=== PATIENT | female | born 1935 | race Caucasian/White ===

== ENCOUNTER → 2016-07-29 17:21 | Outpatient (CLI) | payer MEDICARE, BC ==
[2014-01-13 08:58] VITALS: BMI 17.1
[~2016-07-29 17:21] MED LIST: ACETAMINOPHEN325 MG NG; BAYER CHEWABLE81 MG PO; BETAPACE 80 MG80 MG PO; CALTRATE 600 M600 M1 PO; COUMADIN5 MG PO; CRESTOR10 MG PO; HYDROCODON-ACE1 EAC7 PO; KLOR-CON20 MEQ/PKT PO; LEVOXYL25 MCG PO; PRILOSEC20 MG PO
== END | disposition home or self-care (01) ==
LOC: D.MAMMO 11:45
DX: Z12.31 Encounter for screening mammogram for malignant neoplasm of breast (principal)

== ENCOUNTER → 2016-11-24 12:26 | Outpatient (CLI) | payer MEDICARE, BC ==
[2014-01-13 08:58] VITALS: BMI 17.1
== END | disposition home or self-care (01) ==
LOC: D.RAD 12:26
DX: M54.5 Low back pain (principal)

== ENCOUNTER 2016-12-29 11:10 | Outpatient (CLI) | payer MEDICARE, BC ==
[~2016-12-29] VITALS: Ht 162.6 cm; Wt 49.1 kg
--- NOTE | ~2016-12-29 | OP ---
PATIENT NAME: JASSI WINSTON MEDICAL RECORD: [id number] :31 LOCATION:D.CAT ADMISSION DATE: SURGEON: CARMENCITA DALLAS M.D. DATE OF OPERATION: 12/29/2016 REFERRING PHYSICIAN: Dr. Rustam Garza. PROCEDURES PERFORMED: 1. Selective coronary angiography. 2. Left heart catheterization with ventriculogram. INDICATION: An 81-year-old woman, who presents with symptoms of accelerating angina. EQUIPMENT USED: A 5-Danish JL4, Serjio right, pigtail catheter. TECHNIQUE: A 5-Danish sheath was inserted in retrograde fashion in the right common femoral artery. Next, selective coronary angiography was performed in standard views 5-Danish JL4 and Serjio right. Left heart catheterization performed using pigtail catheter. CORONARY ANATOMY: 1. Left main: Left main trunk is moderate in caliber. It gives rise to the LAD and circumflex. It is angiographically normal. 2. LAD: This is a large caliber vessel extending to the apex somewhat tortuous consistent with hypertensive changes. However, the vessel is smooth-walled and angiographically normal. 3. Circumflex: This vessel is moderate in caliber. It provides the lateral branch in the proximal segment. The circumflex and lateral branch are angiographically normal. 4. Right coronary: This vessel is moderate in caliber and dominant. It actually arises from the noncoronary cusp. This vessel is smooth-walled and angiographically normal. 5. Left ventricle: Left ventricle demonstrates left ventricular hypertrophy. No regional wall motion abnormalities are seen. Estimated ejection fraction is 60%. IMPRESSION: 1. Normal coronary arteries. 2. Normal left ventricular function. RECOMMENDATIONS: I suspect her chest pain is noncardiac in origin. We will proceed with a workup in this area. TRANSINT:[id number] Voice Confirmation ID: [id number] DOCUMENT ID: [id number] CARMENCITA DALLAS M.D. CC: [id number] DICTATION DATE: 12/29/16 1422 TECHNICAL SERVICE REP: [id number] [facility] CLI 12/29/16 [place] [id number] [place] [id number]
--- NOTE | ~2016-12-29 | HEMODYNAMI ---
PATIENT:JASSI WINSTON MEDICAL RECORD: [id number] : 31 LOCATION:D.CAT ADMISSION DATE: 12/29/16 Generatedon:12/29/201614:21 Patient name: JASSI WINSTON Patient #: [id number] SSN: : Date of study: 12/29/2016 Page: Of Hemodynamic Procedure Report Patient Data Patient Demographics Procedure consent was obtained First Name: JASSI Gender: Female Last Name: TISH : 1935 Middle Initial: A Age: 81 year(s) Patient #: [id number] Race: Additional ID: [id number] Contact details Address: [address] [place] [address] State: [place] City: [place] Zip code: [address] Past Medical History Allergies Allergen Reaction Date Comments Reported Morphine 12/29/2016 Sulfa drugs 12/29/2016 Admission Admission Data Admission Date: 12/29/2016 Admission Time: 11:10 Admit Source: Other Insurance Payor: Medicare Height (in.): 64 BSA: 1.51 (m2) Height (cm.): 162.56 BMI: 18.54 (kg/m2) Weight (lbs.): 108 Weight (kg.): 48.99 Lab Results Lab Result Date: 12/29/2016 Lab Result Time: 0:00 Biochemistry Name Units Result Min Max BUN mg/dl 14 --(--*-)-- 7 18 Creatinine mg/dl 0.8 --(-*--)-- 0.6 1.3 CBC Name Units Result Min Max Hemoglobin g/dl 13.2 -*(----)-- 13.5 17.5 Procedure Procedure Types Cath Procedure Diagnostic Procedure [facility] w/Coronaries Procedure Description Procedure Date Procedure Date: 12/29/2016 Procedure Start Time: 14:05 Procedure End Time: 14:20 Procedure Staff Name Function Kevin Torres MD Performing Physician Danay Hoang RT Scrub Leatha Ferreira RN Nurse Luis Nash RT Monitor Procedure Data Cath Procedure Fluoroscopy Diagnostic fluoroscopy Total fluoroscopy Time: 1.9 time: 1.9 min min Diagnostic fluoroscopy Total fluoroscopy dose: 104 dose: 104 mGy mGy Contrast Material Contrast Material Type Amount (ml) Isovue 300 66 Entry Location Entry Primary Successful Side Size Upsize Upsize Entry Closure Succes sful Closure Location (Fr) 1 (Fr) 2 (Fr) Remarks Device Remarks Femoral Right 5 Fr Exoseal artery Estimated blood loss: 10 ml Diagnostic catheters Device Type Used For End Catheter Placement Cordis 5Fr JL 4.0 Procedure Catheter (MP) Cordis 5Fr 3DRC Catheter Procedure (MP) Cordis 5Fr Pigtail Procedure Catheter (MP) Procedure Medications Medication Administration Route Dosage Oxygen NC 2 l/min Heparin Flush Bag added to field 2 bags (1000units/500ml NS) Lidocaine 2% added to field 20 Radial Cocktail added to field 1 syringe (Verapomil 2mg/Nitro 400mcg/Heparin 1500units) Versed I.V. 1 mg Fentanyl I.V. 50 mcg Fentanyl I.V. 25 mcg Hemodynamics Rest BSA: 1.51 (m2) O2 Consumption: Estimated: 131.25 (ml/min) O2 Consumption indexed : Estimated:86.92 (ml/min/m) Heart Rate: 64 (bpm) Pressure Samples Time Site Value (mmHg) Purpose Heart Use Rate(bpm) 14:12 LV 143/5,11 Snapshot 64 14:13 AO 154/77(88) Pullback 66 14:13 LV 154/-1,11 Pullback 66 Gradients Valve Time Site 1 Site 2 Mean SEP/DFP Peak To Heart Use (mmHg) (sec/min) Peak Rate (mmHg) (bpm) Aortic 14:13 LV AO 5 14 0 66 154/-1,11 154/77(88) Calculations Valve P-P Mean Valve Index Valve Source Name Gradient Area Flow (cm2) Aortic 0 5 0 5 Snapshots Pre Cath Intra NCS Post Cath Vital Signs Time Heart Resp SPO2 etCO2 AU6poly NIBP (mmHg) Rhythm Pain Sedation Rate (ipm) (%) (mmHg) (mmHg) Status Level (bpm) 13:49:05 68 12 97 0 0 177/91(123) NSR 0 (11) 10(A) , No pain 13:53:27 61 15 100 0 0 175/77(99) NSR 0 (11) 10(A) , No pain 13:57:51 60 19 100 0 0 146/69(120) NSR 0 (11) 10(A) , No pain 14:02:03 60 19 98 0 0 141/70(114) NSR 0 (11) 10(A) , No pain 14:06:13 60 15 96 0 0 144/73(121) NSR 0 (11) 9(A) , No pain 14:10:25 60 16 96 0 0 152/69(113) NSR 0 (11) 9(A) , No pain 14:14:41 59 15 95 0 0 133/68(107) NSR 0 (11) 9(A) , No pain 14:18:28 60 18 98 0 0 150/75(120) NSR 0 (11) 9(A) , No pain Medications Time Medication Route Dose Verified Delivered Reason Notes Eff ectiveness by by 13:46:08 Oxygen NC 2 l/min Kevin Leatha Per Brian Ferreira RN physician 13:46:19 Heparin Flush added 2 bags Kevin Kevin used for Bag to Brian Torres MD procedure (1000units/500ml field NS) 13:46:26 Lidocaine 2% added 20ml Kevin Kevin used for to vial Brian Torres MD procedure field 13:46:34 Radial Cocktail added 1 Kevin Kevin used for (Verapomil to syringe Brian Torres MD procedure 2mg/Nitro field 400mcg/Heparin 1500units) 14:00:45 Versed I.V. 1 mg Kevin Leatha for Brian Ferreira RN sedation 14:00:52 Fentanyl I.V. 50 mcg Kevin Leatha for Brian Ferreira RN sedation 14:05:28 Fentanyl I.V. 25 mcg Kevin Leatha for Brian Ferreira RN sedation Procedure Log Time Note 13:28:40 Luis PEARSON(R) (CV) sent for patient. Start room use. 13:28:41 Time tracking: Regular hours 13:28:45 Plan of Care:Hemodynamics will remain stable., Cardiac rhythm will remain stable., Comfort level will be maintained., Respiratory function will remain adequate., Patient/ family verbilizes understanding of procedure., Procedure tolerated without complication., Recovers from procedure without complications.. 13:38:34 Patient received from Pre/Post Procedure Room to CCL 1 Alert and oriented. Tansferred to table in Supine position. 13:38:35 Warm blankets applied, and hebert hugger turned on for patient comfort. 13:38:36 Correct patient and procedure confirmed by team. 13:38:37 Signed procedure consent form obtained from patient. 13:38:38 ECG and BP/O2 sat monitors applied to patient. 13:38:41 Full Disclosure recording started 13:46:08 Oxygen 2 l/min NC was administered by Leatha Ferreira RN; Per physician; 13:46:19 Heparin Flush Bag (1000units/500ml NS) 2 bags added to field was administered by Kevin Torres MD; used for procedure; 13:46:26 Lidocaine 2% 20ml vial added to field was administered by Kevin Torres MD; used for procedure; 13:46:34 Radial Cocktail (Verapomil 2mg/Nitro 400mcg/Heparin 1500units) 1 syringe added to field was administered by Kevin Torres MD; used for procedure; 13:47:59 Vital chart was started 13:52:14 Rhythm: sinus rhythm 13:52:35 H&P Date Dictated: 12/18/2016 Within 30 days and on chart., H&P Addendum completed by physician on day of procedure. (MUST COMPLETE FOR ALL OUTPATIENTS). 13:52:43 Pre-procedure instructions explained to patient. 13:52:44 Pre-op teaching completed and patient verbalized understanding. 13:52:48 Family in patients room. 13:52:52 Patient NPO since Breakfast. 13:53:08 Patient allergic to Morphine 13:53:16 Patient allergic to Sulfa drugs 13:53:29 Is the patient allergic to Iodine/contrast media? No. 13:53:34 Is patient on blood thinner?No 13:53:38 Patient diabetic? No. 13:53:44 Patient not . Patient is over age 55. 13:53:46 ----Pre-sedation anethsthesia assessment.---- 13:54:37 Snore? Yes 13:54:39 Sleep apnea? No 13:54:40 Deviated septum? No 13:54:42 Opens mouth fully? Yes 13:54:43 Sticks out tongue? Yes 13:54:46 Airway obstruction? No ? 13:54:56 Dentures? Yes BRIDGE 13:55:03 Pre procedure: right dorsailis pedis pulse 1+ Palpable, but thready & weak; easily obliterated 13:55:09 Modified Edis's test Ulnar < 7 seconds 13:55:21 Patient pain scale 0/10 NO PAIN. 13:55:50 IV patent on arrival in left wrist with 0.9% NaCl at O. 13:58:13 Lab Result : BUN 14 mg/dl 13:58:13 Lab Result : Hemoglobin 13.2 g/dl 13:58:13 Lab Result : Creatinine 0.8 mg/dl 13:58:17 Lab results completed and on chart. 13:58:22 Right Radial & Right Groin area was prepped with chlora-prep and draped in sterile fashion 13:58:25 Alarms reviewed by R. N. 13:58:26 Sharps counted by scrub and verified by R.N. 13:58:39 Admit Source: Other 13:58:46 Patient Height : 64 cm 13:58:57 Patient Weight : 108 kg 13:58:57 Insurance Payor : Medicare 13:59:23 Physician arrived 13:59:24 --------ALL STOP TIME OUT------ 13:59:25 Final Timeout: patient, procedure, and site verified with staff and physician. All members of the team are in agreement. 13:59:30 Right Radial & Right Groin site verified by team. 13:59:39 Physical assessment completed. ASA score P 2 - A patient with mild systemic disease as per Kevin Torres MD. 14:00:45 Versed 1 mg I.V. was administered by Leatha Ferreira RN; for sedation; 14:00:52 Fentanyl 50 mcg I.V. was administered by Leatha Ferreira RN; for sedation; 14:01:47 Zero performed for pressure channel P1 14:03:38 Use device set Radial Dx 14:03:39 Acist Syringe opened to sterile field. 14:03:40 Medline Cath Pack opened to sterile field. 14:03:40 Bag Decanter opened to sterile field. 14:03:42 St Suraj 260cm J .035 wire opened to sterile field. 14:03:44 Acist Hand Control opened to sterile field. 14:03:47 Acist Manifold opened to sterile field. 14:03:50 Tegaderm 4 x 4 opened to sterile field. 14:03:51 MBrace Wrist Support opened to sterile field. 14:03:57 Procedure started. 14:04:53 DUE TO PATIENTS SIZR DR. TORRES DECIDED TO GO FEMORAL 14:05:11 Use device set Femoral Dx 14:05:15 Terumo 5Fr [place] Sheath opened to sterile field. 14:05:20 Diagnostic Infinity 5Fr Multipack catheter opened to sterile field. 14:05:28 Fentanyl 25 mcg I.V. was administered by Leatha Ferreira RN; for sedation; 14:05:48 Local anesthetic to right femoral artery with Lidocaine 2% by Kevin Torres MD.INITIAL ACCESS ONLY 14:06:48 A 5 Fr sheath was inserted into the Right Femoral artery 14:07:27 A Cordis 5Fr JL 4.0 Catheter (MP) was advanced over the wire and used for Procedure. 14:07:57 LCA angiography performed. 14:09:59 Catheter removed. 14:10:18 A Cordis 5Fr 3DRC Catheter (MP) was advanced over the wire and used for Procedure. 14:10:56 RCA angiography performed. 14:11:33 Catheter removed. 14:12:22 A Cordis 5Fr Pigtail Catheter (MP) was advanced over the wire and used for Procedure. 14:12:59 LV gram done using MEDEIROS 14:13:05 EF : 55 % 14:13:40 Catheter removed. 14:14:48 Cordis 5Fr Exoseal opened to sterile field. 14:15:57 Sheath removed intact; hemostasis achieved with Exoseal to the Right Femoral artery. 14:16:00 Procedure ended.(Physican Out) 14:16:16 Fluoroscopy time 01.90 minutes. 14:16:21 Fluoroscopy dose: 104 mGy 14:16:21 Flurop Dose total: 104 14:16:27 Contrast amount:Isovue 300 66ml. 14:16:29 Sharps counted by scrub and verified by R.N. 14:18:47 Insertion/operative site no bleeding no hematoma. 14:18:51 Post-op/insertion site Right Femoral artery dressed using a 4 x 4 and Tegaderm. 14:18:56 Post right femoral artery:stable 14:18:58 Post Procedure Pulses reassessed and unchanged 14:19:04 Post-procedure physical assessment completed. ASA score P 2 - A patient with mild systemic disease as per Kevin Torres MD. 14:19:09 Post procedure rhythm: sinus rhythm 14:19:13 Estimated blood loss: 10 ml 14:19:14 Post procedure instruction explained to patient.Patient verbalizes understanding. 14:19:49 Patient needs reinforcement of post procedure teaching. 14:19:50 Procedure and supply charges have been captured, reviewed, submitted and are correct. 14:19:53 Vital chart was stopped 14:19:54 See physician's report for complete and final results. 14:19:56 Report given to Pre/Post Procedure Room. 14:20:01 Patient transfered to Pre/Post Procedure Room with Stretcher. 14:20:04 Procedure ended. 14:20:04 Full Disclosure recording stopped 14:20:56 End room use (Document Last) Device Usage Item Name Manufacture Quantity Catalog Hospital Part Current Minimal Lot# / Number Charge Number Stock Stock Serial# Code Acist Acist 1 [id number] [id number] 709661 876654 20 Syringe Medical [employer] Inc Medline Cardinal 1 [id number] [id number] 23777 698806 5 Cath Pack Health Bag Microtek 1 2002S 995039 71956 798368 [address] Suraj 1 [id number] 598416 790265 540201 30 260cm J .035 wire Acist Hand Acist 1 40316 081110 592604 360284 5 Control Medical Systems Inc Acist Acist 1 52874 292918 343664 085269 5 Manifold Medical Systems Inc Tegaderm 4 3M 1 1626W 332888 952748 008772 5 x 4 MBrace Advanced 1 140-0250-00 762688 25096 732781 5 Wrist Vascular Support Dynamics Terumo 5Fr Terumo 1 [id number] 505835 372720 501581 40 [place] Sheath Diagnostic Cardinal 1 [id number] 153394 17634 829393 30 Infinity Health 5Fr Multipack catheter Cordis 5Fr Cardinal 1 314506 5 JL 4.0 Health Catheter (MP) Cordis 5Fr Cardinal 1 933570 5 3DRC Health Catheter (MP) Cordis 5Fr Cardinal 1 100765 5 Pigtail Health Catheter (MP) Cordis 5Fr Cardinal 1 EX500 419296 469256 543153 10 [place] Signature Audit Nursery Stage Time Signature Unsigned Intra-Procedure 12/29/2016 Luis Nash 2:21:54 PM RT(R) (CV) Signatures Monitor : Luis Nash RT Signature : Date : Time : [address] [place] [address]
[2016-12-29 11:51] VITALS: BP 170/78; Ht 162.6 cm; Wt 49.1 kg
[2016-12-29 12:16] LABS: BASOPHILS 0.6 % (0-2); EOSINOPHILS 3.1 % (0-7); HEMATOCRIT 39.4 % (36.0-48.0); HEMOGLOBIN 13.2 g/dL (12-16); IMMATURE GRANULOCYTES 0.3 % (0-5); LYMPHOCYTES 24.6 % (15-50); MCH 30.8 pg (26.0-34.0); MCHC 33.5 g/dL (31.0-37.0); MCV 92.1 fL (80.0-100.0); MEAN PLATELET VOLUME 8.6 fL (7.4-10.4); MONOCYTES 11.4 % (2-11); PLATELET COUNT 165 10x3/uL (130-400); RBC 4.28 10x6/uL (4.00-5.40); RDW 14.6 % (11.5-14.5); WBC 6.5 10x3/uL (4.8-10.8)
[2016-12-29 12:33] LABS: ANION GAP 9.7 mmol/L (8-16); CALCIUM 9.7 mg/dL (8.5-10.1); CARBON DIOXIDE 30.4 mmol/L (21.0-32.0); CREATININE - SERUM 0.8 mg/dL (0.6-1.3); POTASSIUM - SERUM 4.1 mmol/L (3.5-5.1)
--- NOTE | 2016-12-29 14:45 | NUR ---
RESTING, RIGHT GROIN CDI, NO HEMATOMA OR BLEEDING AT SITE, SOFT TO TOUCH.
--- NOTE | 2016-12-29 15:15 | NUR ---
RIGHT GROIN CDI, NO HEMATOMA OR BLEEDING AT SITE, SOFT TO TOUCH
== END 2016-12-29 17:00 | disposition home or self-care (01) ==
LOC: D.CATH 11:10
PROVIDERS: Internal Medicine Cardiovascular Disease
DX: R07.89 Other chest pain (principal)

== ENCOUNTER 2017-07-31 11:17 | Emergency (ER) | payer MEDICARE, BC ==
[2016-12-29 11:51] VITALS: BMI 18.5
[2017-07-31 12:28] LABS: ALBUMIN 3.8 g/dL (3.4-5.0); ALKALINE PHOSPHATASE 76 U/L (46-116); ALT (SGPT) 21 U/L (10-68); BILIRUBIN - TOTAL 0.61 mg/dL (0.2-1.3); CALC OSMOLALITY 280 mosm/kg (275-300); CALCIUM 9.2 mg/dL (8.5-10.1); CARBON DIOXIDE 29.8 mmol/L (21.0-32.0); CHLORIDE - SERUM 101 mmol/L (98-107); CREATININE - SERUM 0.7 mg/dL (0.6-1.3); GLUCOSE 92 mg/dL (74-106); MAGNESIUM - SERUM 2.4 mg/dL (1.8-2.4); SODIUM 140 mmol/L (136-145); THYROID STIMULATING HORMONE 2.08 uIU/mL (0.36-3.74); UREA NITROGEN 19 mg/dL (7-18); eGFR NON AFRICAN AMERICAN 84 mL/min (90-120)
[2017-07-31 12:30] LABS: POTASSIUM - SERUM 4.4 mmol/L (3.5-5.1)
[2017-07-31 12:48] LABS: BASOPHILS 0.4 % (0-2); HEMATOCRIT 44.3 % (36.0-48.0); HEMOGLOBIN 14.9 g/dL (12-16); IMMATURE GRANULOCYTES 0.1 % (0-5); LYMPHOCYTES 13.2 % (15-50); MCH 30.2 pg (26.0-34.0); MCHC 33.6 g/dL (31.0-37.0); MCV 89.9 fL (80.0-100.0); MEAN PLATELET VOLUME 9.8 fL (7.4-10.4); MONOCYTES 5.5 % (2-11); NEUTROPHILS 79.8 % (40-80); PLATELET COUNT 148 10x3/uL (130-400); RBC 4.93 10x6/uL (4.00-5.40); WBC 8.2 10x3/uL (4.8-10.8)
== END 2017-07-31 13:11 | disposition home or self-care (01) ==
LOC: D.ER 11:17
PROVIDERS: Emergency Medicine
DX: R55 Syncope and collapse (principal); S09.90XA Unspecified injury of head, initial encounter; W19.XXXA Unspecified fall, initial encounter; Y93.9 Activity, unspecified; Y92.9 Unspecified place or not applicable; M54.5 Low back pain; Z95.0 Presence of cardiac pacemaker; I48.91 Unspecified atrial fibrillation; I49.3 Ventricular premature depolarization

== ENCOUNTER 2017-09-20 10:54 | Inpatient (IN) | payer MEDICARE, BC ==
[~2017-09-20] VITALS: Ht 162.6 cm; Wt 41.3 kg
[~2017-09-20 10:54] MED LIST changes: -CRESTOR10 MG PO
[2017-09-20 11:16] LABS: BASOPHILS 0.3 % (0-2); EOSINOPHILS 0.5 % (0-7); HEMATOCRIT 42.7 % (36.0-48.0); HEMOGLOBIN 14.4 g/dL (12-16); IMMATURE GRANULOCYTES 0.1 % (0-5); LYMPHOCYTES 9.5 % (15-50); MCH 29.7 pg (26.0-34.0); MCHC 33.7 g/dL (31.0-37.0); MEAN PLATELET VOLUME 9.3 fL (7.4-10.4); MONOCYTES 5.7 % (2-11); NEUTROPHILS 83.9 % (40-80); PLATELET COUNT 132 10x3/uL (130-400); RBC 4.85 10x6/uL (4.00-5.40); RDW 13.5 % (11.5-14.5); WBC 7.8 10x3/uL (4.8-10.8)
[2017-09-20 11:40] LABS: ALBUMIN 3.8 g/dL (3.4-5.0); ALKALINE PHOSPHATASE 82 U/L (46-116); ALT (SGPT) 24 U/L (10-68); BILIRUBIN - TOTAL 1.02 mg/dL (0.2-1.3); CALC OSMOLALITY 278 mosm/kg (275-300); CALCIUM 8.8 mg/dL (8.5-10.1); CARBON DIOXIDE 25.9 mmol/L (21.0-32.0); CHLORIDE - SERUM 103 mmol/L (98-107); CREATININE - SERUM 0.6 mg/dL (0.6-1.3); GLUCOSE 105 mg/dL (74-106); POTASSIUM - SERUM 3.1 mmol/L (3.5-5.1); PROTEIN - SERUM 6.9 g/dL (6.4-8.2); SODIUM 139 mmol/L (136-145); UREA NITROGEN 15 mg/dL (7-18); eGFR NON AFRICAN AMERICAN > 90 mL/min (90-120)
[2017-09-20 11:44] LABS: APPEARANCE CLEAR (CLEAR); BILIRUBIN NEGATIVE (NEGATIVE); COLOR YELLOW (YELLOW); GLUCOSE NEGATIVE (NEGATIVE); KETONE SMALL mg/dL (NEGATIVE); NITRITE NEGATIVE (NEGATIVE); PROTEIN 1+ mg/dL (NEGATIVE); UROBILINOGEN NORMAL (NORMAL)
[2017-09-20 11:45] LABS: BACTERIA MODERATE /hpf (NONE SEEN); EPITHELIAL CELLS 0-5 /hpf (0-5); RED CELLS - URINE 0-5 /hpf (0-5); WHITE CELLS - URINE 0-5 /hpf (0-5)
[2017-09-20 12:05] LABS: CREATINE KINASE 109 UL (21-215); PRO BNP 4170 pg/mL (0-450)
[2017-09-20 16:59] VITALS: BP 156/90
[2017-09-20 18:00] VITALS: BP 156/90; BMI 24.0
[2017-09-20] MEDS ORDERED: CRESTOR10 MG PO (18:06)
[2017-09-20 22:24] LABS: ANION GAP 10.1 mmol/L (8-16); CALCIUM 8.2 mg/dL (8.5-10.1); CREATININE - SERUM 0.9 mg/dL (0.6-1.3); POTASSIUM - SERUM 3.1 mmol/L (3.5-5.1)
[2017-09-20 22:30] VITALS: BP 126/60
[2017-09-21 00:30] VITALS: BP 131/88
[2017-09-21 04:30] VITALS: BP 141/78
[2017-09-21 05:21] LABS: BASOPHILS 0.4 % (0-2); EOSINOPHILS 0.9 % (0-7); HEMATOCRIT 39.6 % (36.0-48.0); HEMOGLOBIN 12.8 g/dL (12-16); IMMATURE GRANULOCYTES 0.1 % (0-5); LYMPHOCYTES 16.6 % (15-50); MCHC 32.3 g/dL (31.0-37.0); MCV 89.8 fL (80.0-100.0); MEAN PLATELET VOLUME 9.4 fL (7.4-10.4); MONOCYTES 10.8 % (2-11); NEUTROPHILS 71.2 % (40-80); RBC 4.41 10x6/uL (4.00-5.40); RDW 13.8 % (11.5-14.5)
[2017-09-21 05:27] LABS: PLATELET COUNT 164 10x3/uL (130-400)
[2017-09-21 06:07] LABS: ALBUMIN 3.5 g/dL (3.4-5.0); BILIRUBIN - TOTAL 0.8 mg/dL (0.2-1.3); CALCIUM 8.3 mg/dL (8.5-10.1); CARBON DIOXIDE 29.2 mmol/L (21.0-32.0); CREATININE - SERUM 0.8 mg/dL (0.6-1.3); PROTEIN - SERUM 6.7 g/dL (6.4-8.2); THYROID STIMULATING HORMONE 1.08 uIU/mL (0.36-3.74)
[2017-09-21 06:14] LABS: ANION GAP 14.7 mmol/L (8-16)
[2017-09-21 06:15] LABS: POTASSIUM - SERUM 2.9 mmol/L (3.5-5.1)
[2017-09-21 09:29] VITALS: BP 128/79
[2017-09-21 12:23] VITALS: BP 137/76
[2017-09-21 12:44] VITALS: Ht 162.6 cm; Wt 41.3 kg
[2017-09-21 15:56] VITALS: BP 153/86
[2017-09-21 19:00] VITALS: BP 151/85
[2017-09-22] VITALS: BP 125/70
[2017-09-22 04:00] VITALS: BP 155/92
[2017-09-22 06:11] LABS: ANION GAP 11.7 mmol/L (8-16); CALCIUM 8.8 mg/dL (8.5-10.1); CREATININE - SERUM 0.9 mg/dL (0.6-1.3); POTASSIUM - SERUM 3.7 mmol/L (3.5-5.1)
[2017-09-22 08:06] VITALS: BP 137/93
[2017-09-22 13:03] VITALS: BP 109/67
[2017-09-22] MEDS ORDERED: ELIQUIS2.5 MG PO (15:39)
[2017-09-22] MEDS ORDERED: K-DUR20 MEQ PO (15:45)
[2017-09-22] MEDS ORDERED: LASIX40 MG PO (15:45)
[2017-09-22] MEDS ORDERED: DULCOLAX10 MG/SUPP RC (15:46)
[2017-09-22 16:40] VITALS: BP 134/76
== END 2017-09-22 18:04 | DRG 64 ==
LOC: D.ER 10:54 → D.M2 13:19
PROVIDERS: Emergency Medicine; Family Medicine
DX: I63.9 Cerebral infarction, unspecified (principal); I50.31 Acute diastolic (congestive) heart failure; G81.91 Hemiplegia, unspecified affecting right dominant side; I48.91 Unspecified atrial fibrillation; Z79.01 Long term (current) use of anticoagulants; I25.10 Atherosclerotic heart disease of native coronary artery without angina pectoris; Z95.0 Presence of cardiac pacemaker

== ENCOUNTER 2017-09-22 17:27 | Inpatient (IN) | payer MEDICARE, BC ==
[~2017-09-22] VITALS: Ht 162.6 cm; Wt 49.9 kg
--- NOTE | ~2017-09-22 | RHP ---
PATIENT: JASSI WINSTON MEDICAL RECORD: [id number] ACCOUNT: [id number] LOCATION:[facility]1110 : 31 ADMISSION DATE: 09/22/17 REHABILITATION HISTORY AND PHYSICAL EXAMINATION POST ADMISSION PHYSICIAN EXAMINATION DATE OF ADMISSION: 09/22/2017 ADMITTING DIAGNOSES: Acute CVA with right-sided weakness. HISTORY OF PRESENT ILLNESS: The patient is an 82-year-old female patient admitted secondary to acute CVA. She was admitted to the hospital from the ER on 09/20/17. She presented to the ER after her daughter found her sitting on the commode and was unable to get up. The patient remembers getting up to go to the bathroom, but unsure of the events that followed. She states that a couple of days prior to this she had been extremely weak. She had difficulty ambulating in her house, started having some shortness of breath as well. She is alert and oriented, but had obvious weakness in her right arm and leg along with some difficulty in drinking water. CT of her head showed no acute intracranial abnormality. Mild cerebral atrophy. Chest x-ray showed moderate cardiomegaly with increasing prominence since previous study. There was some mild central pulmonary edema. There is bilateral lower lobe airspace disease, greater on the left than right. There are small bilateral pleural effusions. Bedside swallow eval showed no overt signs of aspiration, but recommended safety and dietary tolerance due to profound weakness, previously she lived alone and was independent with her ADLs and mobility without assistive devices. She is currently moderate to max assist for ADLs and mobility. 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 She has generalized weakness and poor balance. She ambulated 2 feet with 60% assist from PT. She has good family support, is motivated to regain her strength, so she can hopefully return back home to her prior level of functioning. COMORBIDITIES: In this patient include new onset CHF, pulmonary edema, bilateral pleural effusions, AFib, atrial flutter, coronary artery disease, acute dyspnea, elevated BNP, inadequate protein intake, right-sided weakness, fatigue, recent fall, orthostatic syncope, IBS, gastroesophageal reflux disease and difficulty swallowing. PAST MEDICAL HISTORY: Significant for thyroid problems. She has history of arrhythmia and pacemaker placement, coronary artery disease. PAST SURGICAL HISTORY: Includes hysterectomy. She also had a pacemaker placement. ALLERGIES: SULFA, MORPHINE. CURRENT MEDICATIONS: Include Protonix 40 mg daily, Synthroid 25 mcg daily, sotalol 40 mg b.i.d., potassium 20 mEq b.i.d., [place] 5/325 one tab q.4 hours p.r.n., Lasix 40 mg b.i.d., Caltrate 500 mg b.i.d., Dulcolax 10 mg as needed for constipation, aspirin chew 81 mg daily, Eliquis 2.5 mg b.i.d., Tylenol 650 mg q.4 hours p.r.n., and MiraLax 17 grams in 8 ounces of water daily. HABITS: No alcohol or tobacco use. HISTORY AND PHYSICAL [id number] JASSI WINSTON FAMILY HISTORY: Noncontributory. SOCIAL HISTORY: The patient hopes to return back home with her family. REVIEW OF SYSTEMS: GENERAL: Does complain of weakness, right greater than left. HEENT: Denies cold, cough, or congestion. CARDIOVASCULAR: Denies chest pain. PHYSICAL EXAMINATION: VITAL SIGNS: Stable, afebrile. GENERAL: Elderly female in no acute distress, alert upon exam. HEENT: Normocephalic and atraumatic. Mucosa moist. NECK: Supple. No lymphadenopathy. LUNGS: Clear at this time. HEART: Regular rate and rhythm. ABDOMEN: Benign. EXTREMITIES: No clubbing, cyanosis or edema. NEUROLOGIC: She does have noted weakness on her right side and inability to control her right leg when instructed. LABORATORY DATA: Her white count is 7.4, H&H 13 and 41 and platelet count is 167. Sodium 141, potassium 3.2, BUN and creatinine of 33 and 1.1. Blood sugar was noted to be 98. ASSESSMENT: This is an 82-year-old female patient admitted to rehab with a working diagnosis of cerebrovascular accident with right-sided involvement. The patient has potential to make improvement. We instituted the following multidisciplinary therapies including to but not limited to physical, occupational, respiratory, speech, nutritional services, prosthetics and orthotics. Given her complex medical conditions and risk for further medical complications, rehabilitation services cannot be provided at a lower level of care such as a care home facility. PLAN: 1. Admit to [facility] rehab for intensive inpatient therapy to include the following disciplines: A. Physical therapy to improve gait, all transfer skills and bed mobility to a modified independent level. B. Occupational therapy to improve activities of daily living to modified independent level. C. Case management to assist with discharge planning and placement options. D. Nutrition to assist with nutritional needs. E. Rehabilitation nursing to assist in monitoring the patient's underlying medical conditions and to assist with any type of bowel or bladder management. 2. The patient's current medical care and medications will be continued. 3. The patient will be placed on standard fall precautions. 4. The patient's estimated length of stay is approximately 7-10 days. 5. Discuss this patient during care team staff meeting this week. TRANSINT:[id number] Voice Confirmation ID: [id number] DOCUMENT ID: [id number] FRANK notes whether there has been none or any medical/functional change since admission: HISTORY AND PHYSICAL [id number] JASSI WINSTON - No change since preadmission screen. FRANK attests patient continues to be appropriate for IRF: - Continues to be appropriate. JOSELYN FABIAN MD at 1139 CC: [id number] DICTATION DATE: 09/23/17 0848 CLINICAL SECRETARY: 09/23/17 0929 ADM IN [facility] [address] [place] [id number]
[~2017-09-22 17:27] MED LIST changes: +CRESTOR10 MG PO; +DULCOLAX10 MG/SUPP RC; +ELIQUIS2.5 MG PO; +K-DUR20 MEQ PO; +LASIX40 MG PO
[2017-09-22 18:54] VITALS: BP 131/55; BMI 18.9
[2017-09-22 23:42] VITALS: BP 120/60
[2017-09-23 07:31] LABS: BASOPHILS 0.5 % (0-2); EOSINOPHILS 2.8 % (0-7); HEMATOCRIT 41.1 % (36.0-48.0); HEMOGLOBIN 13.3 g/dL (12-16); IMMATURE GRANULOCYTES 0.1 % (0-5); LYMPHOCYTES 19.9 % (15-50); MCH 29.5 pg (26.0-34.0); MCHC 32.4 g/dL (31.0-37.0); MCV 91.1 fL (80.0-100.0); MEAN PLATELET VOLUME 9.6 fL (7.4-10.4); MONOCYTES 14.9 % (2-11); NEUTROPHILS 61.8 % (40-80); PLATELET COUNT 167 10x3/uL (130-400); RBC 4.51 10x6/uL (4.00-5.40); RDW 13.9 % (11.5-14.5); WBC 7.4 10x3/uL (4.8-10.8)
[2017-09-23 07:43] LABS: ANION GAP 10.6 mmol/L (8-16); CALCIUM 8.7 mg/dL (8.5-10.1); CARBON DIOXIDE 32.6 mmol/L (21.0-32.0); POTASSIUM - SERUM 3.2 mmol/L (3.5-5.1)
[2017-09-23 08:00] VITALS: BP 134/69
[2017-09-23 11:04] VITALS: Ht 162.6 cm; Wt 49.9 kg
[2017-09-24 00:24] VITALS: BP 128/57
[2017-09-24 08:11] VITALS: BP 135/66
[2017-09-24 20:15] VITALS: BP 127/55
[2017-09-25 06:12] LABS: EOSINOPHILS 6.9 % (0-7); HEMATOCRIT 38.7 % (36.0-48.0); HEMOGLOBIN 12.4 g/dL (12-16); IMMATURE GRANULOCYTES 0.3 % (0-5); MCH 29.2 pg (26.0-34.0); MCV 91.1 fL (80.0-100.0); MEAN PLATELET VOLUME 9.6 fL (7.4-10.4); MONOCYTES 13.8 % (2-11); PLATELET COUNT 166 10x3/uL (130-400); RBC 4.25 10x6/uL (4.00-5.40); RDW 13.8 % (11.5-14.5); WBC 5.8 10x3/uL (4.8-10.8)
[2017-09-25 06:30] LABS: ANION GAP 10.1 mmol/L (8-16); CALCIUM 8.9 mg/dL (8.5-10.1); CARBON DIOXIDE 31.4 mmol/L (21.0-32.0); CREATININE - SERUM 0.9 mg/dL (0.6-1.3); POTASSIUM - SERUM 3.5 mmol/L (3.5-5.1)
[2017-09-25 08:53] VITALS: BP 141/70
[2017-09-25 22:24] VITALS: BP 136/70
[2017-09-26 09:34] VITALS: BP 188/71
[2017-09-26 18:35] VITALS: BP 137/72
[2017-09-26 20:00] VITALS: BP 162/63
[2017-09-27 07:52] VITALS: BP 149/76
[2017-09-28 07:46] VITALS: BP 97/63
[2017-09-28 18:51] VITALS: BP 140/62
[2017-09-29 07:38] LABS: BASOPHILS 0.7 % (0-2); EOSINOPHILS 1.6 % (0-7); HEMATOCRIT 40.6 % (36.0-48.0); HEMOGLOBIN 13.1 g/dL (12-16); IMMATURE GRANULOCYTES 0.2 % (0-5); LYMPHOCYTES 31.6 % (15-50); MCH 29.2 pg (26.0-34.0); MCHC 32.3 g/dL (31.0-37.0); MCV 90.6 fL (80.0-100.0); MEAN PLATELET VOLUME 9.8 fL (7.4-10.4); NEUTROPHILS 50.9 % (40-80); RBC 4.48 10x6/uL (4.00-5.40); RDW 13.8 % (11.5-14.5); WBC 4.3 10x3/uL (4.8-10.8)
[2017-09-29 07:42] LABS: PLATELET COUNT 128 10x3/uL (130-400)
[2017-09-29 07:48] LABS: ANION GAP 13.7 mmol/L (8-16); CALCIUM 8.6 mg/dL (8.5-10.1); CREATININE - SERUM 0.9 mg/dL (0.6-1.3); POTASSIUM - SERUM 3.7 mmol/L (3.5-5.1)
[2017-09-29 08:09] VITALS: BP 136/61
[2017-09-29 20:17] VITALS: BP 144/60
[2017-09-30 07:46] VITALS: BP 127/67
[2017-09-30 20:06] VITALS: BP 109/48
[2017-10-01 08:02] VITALS: BP 124/63
[2017-10-01 19:41] VITALS: BP 142/60
[2017-10-02 08:00] VITALS: BP 125/70
[2017-10-02 19:50] VITALS: BP 127/64
[2017-10-03 08:30] VITALS: BP 99/50
[2017-10-03 20:15] VITALS: BP 102/65
[2017-10-04 07:40] VITALS: BP 101/50
[2017-10-04 20:15] VITALS: BP 114/56
[2017-10-05 06:08] LABS: BASOPHILS 0.7 % (0-2); EOSINOPHILS 4.3 % (0-7); HEMATOCRIT 44.4 % (36.0-48.0); HEMOGLOBIN 14.6 g/dL (12-16); LYMPHOCYTES 36.1 % (15-50); MCH 29.5 pg (26.0-34.0); MCHC 32.9 g/dL (31.0-37.0); MCV 89.7 fL (80.0-100.0); MEAN PLATELET VOLUME 9.6 fL (7.4-10.4); MONOCYTES 9.9 % (2-11); RBC 4.95 10x6/uL (4.00-5.40); RDW 13.5 % (11.5-14.5); WBC 4.5 10x3/uL (4.8-10.8)
[2017-10-05 06:15] LABS: PLATELET COUNT 180 10x3/uL (130-400)
[2017-10-05 06:32] LABS: ANION GAP 9.7 mmol/L (8-16); CALCIUM 9.1 mg/dL (8.5-10.1); CREATININE - SERUM 1.1 mg/dL (0.6-1.3); POTASSIUM - SERUM 3.7 mmol/L (3.5-5.1)
[2017-10-05 08:00] VITALS: BP 144/76
[2017-10-05 21:25] VITALS: BP 120/70
[2017-10-06 08:31] VITALS: BP 133/81
[2017-10-06 20:00] VITALS: BP 87/56
[2017-10-07 09:29] VITALS: BP 104/71
[2017-10-07 19:05] VITALS: BP 116/52
[2017-10-08 06:58] VITALS: BP 112/66
[2017-10-08 19:00] VITALS: BP 111/61
[2017-10-09] MEDS ORDERED: LASIX20 MG PO (08:07)
[2017-10-09 08:14] VITALS: BP 113/51
== END 2017-10-09 11:00 | disposition home health service (06) | DRG 57 ==
LOC: D.REHAB 17:27
PROVIDERS: Emergency Medicine; Family Medicine
DX: I69.351 Hemiplegia and hemiparesis following cerebral infarction affecting right dominant side (principal); J81.1 Chronic pulmonary edema; I48.92 Unspecified atrial flutter; I11.0 Hypertensive heart disease with heart failure; I50.9 Heart failure, unspecified; I48.91 Unspecified atrial fibrillation; I25.10 Atherosclerotic heart disease of native coronary artery without angina pectoris; R06.00 Dyspnea, unspecified; I95.1 Orthostatic hypotension; K21.9 Gastro-esophageal reflux disease without esophagitis; K58.9 Irritable bowel syndrome, unspecified; Z91.81 History of falling; R13.10 Dysphagia, unspecified; Z95.0 Presence of cardiac pacemaker

== ENCOUNTER 2018-01-18 08:00 | Outpatient (CLI) | payer MEDICARE, BC ==
[2017-09-23 11:04] VITALS: BMI 18.8
[~2018-01-18 08:00] MED LIST changes: +LASIX20 MG PO
== END 2018-01-18 10:15 | disposition home or self-care (01) ==
LOC: D.MAMMO 08:00
DX: Z12.31 Encounter for screening mammogram for malignant neoplasm of breast (principal)

== ENCOUNTER → 2019-01-04 10:24 | Outpatient (CLI) | payer MEDICARE, BC ==
[2017-09-23 11:04] VITALS: BMI 18.8
== END | disposition home or self-care (01) ==
LOC: D.HCCARDIO 10:24
PROVIDERS: ATTEND Internal Medicine Cardiovascular Disease
DX: I35.8 Other nonrheumatic aortic valve disorders (principal)

== ENCOUNTER 2019-10-06 07:49 | Emergency (ER) | payer MEDICARE, BC ==
[~2019-10-06] VITALS: Ht 162.6 cm; Wt 54.5 kg
[2019-10-06 07:50] VITALS: Ht 162.6 cm; Wt 54.5 kg
[2019-10-06 09:07] LABS: BASOPHILS 0.6 % (0-2); EOSINOPHILS 2.3 % (0-7); HEMATOCRIT 43.3 % (36.0-48.0); HEMOGLOBIN 14.3 g/dL (12-16); IMMATURE GRANULOCYTES 0.2 % (0-5); LYMPHOCYTES 16.4 % (15-50); MCH 30.1 pg (26.0-34.0); MCV 91.2 fL (80.0-100.0); MONOCYTES 7.2 % (2-11); NEUTROPHILS 73.3 % (40-80); PLATELET COUNT 175 10x3/uL (130-400); RBC 4.75 10x6/uL (4.00-5.40); WBC 8.2 10x3/uL (4.8-10.8)
[2019-10-06 09:10] LABS: ANION GAP 8.7 mmol/L (8-16); CALCIUM 9.4 mg/dL (8.5-10.1); CARBON DIOXIDE 34.2 mmol/L (21.0-32.0); CREATININE - SERUM 0.9 mg/dL (0.6-1.3); POTASSIUM - SERUM 3.9 mmol/L (3.5-5.1)
[2019-10-06 09:15] LABS: ALBUMIN 3.9 g/dL (3.4-5.0); BILIRUBIN - TOTAL 0.78 mg/dL (0.2-1.3); MAGNESIUM - SERUM 2.3 mg/dL (1.8-2.4); PROTEIN - SERUM 7.5 g/dL (6.4-8.2)
[2019-10-06 09:30] LABS: INR 1.09 (0.85-1.17)
[2019-10-06] MEDS ORDERED: KEFLEX500 MG PO (09:51)
[2019-10-06] MEDS ORDERED: TYLENOL W/CODEI1 TAB PO (09:52)
[2019-10-06 10:31] VITALS: BP 121/60
== END 2019-10-06 10:31 | disposition home or self-care (01) ==
LOC: D.ER 07:49
PROVIDERS: Emergency Medicine
DX: S09.90XA Unspecified injury of head, initial encounter (principal); S01.01XA Laceration without foreign body of scalp, initial encounter; W19.XXXA Unspecified fall, initial encounter; M54.2 Cervicalgia; Z95.0 Presence of cardiac pacemaker; I25.10 Atherosclerotic heart disease of native coronary artery without angina pectoris